=== PATIENT | female | born 1970 | race Caucasian/White ===

== ENCOUNTER 2020-09-05 17:23 | Emergency (ER) | payer MEDICARE, MEDICAID, SELFPAY ==
[2020-09-05 17:27] VITALS: BP 120/96; BP 160/112; PULSE 109; PULSE 116; RESP 16; RESP 18; TEMP 37.4; O2SAT 93; O2SAT 98; BMI 42.0
--- NOTE | 2020-09-05 17:57 | HMH.EDGENADL ---
ED Disposition Clinical Impression: Opiate withdrawal Disposition: Home, Self-Care Condition on Discharge: Good Additional Instructions: Take Gorham as prescribed. Further pain medication prescriptions per Dr. Adam. Additional instructions for CONTROLLED SUBSTANCES: You have been prescribed a medication that is a controlled substance. Controlled substances include pain medications known as opiates and sedative nerve medications known as benzodiazepines. Tramadol, fioricet, and gabapentin are also controlled substances. Some common opiates include: Codeine (such as Tylenol #3) Hydrocodone (Vicodin, Lortab, Lorcet, Gorham) Oxycodone (Percocet, Percodan, Oxycodone, Oxy IR) Some common benzodiazepines include: Diazepam (Valium) Lorazepam (Ativan) Alprazolam (Xanax) Clonazepam (Klonopin) Oxazepam (Serax) All of these controlled substances are highly addictive and frequently abused. Misuse can and frequently does lead to addiction as well as overdose and . Medication should be stored in a locked cabinet or other secure storage unit. Do not store the medication in a motor vehicle. Short term supplies, 3 days or less, are prescribed because of the highly addictive nature of the medication. Any of the controlled substance medication NOT taken should be disposed of properly and NOT SAVED. The recommended method of disposing of unused medications is: Place the medicines in a sealable plastic bag. If the medicine is a solid, crush it or add water to dissolve it. Add something undesirable (cat litter, coffee grounds, etc.) Dispose of sealed bag in household trash Do not flush or pour unused medicines down a sink or drain. Controlled substances should not be shared, given away or sold. Because of the addictive nature and frequent abuse, these medications are sometimes stolen. These medications should be kept in a safe place where they cannot be stolen. Do not keep them in your car or purse. Lost or stolen prescriptions for controlled substances WILL NOT BE REFILLED in this emergency department, regardless of whether a police report was filed. Prescriptions: Hydrocodone/Acetaminophen [Hydrocodon-Acetaminoph 7.5-325] 1 each PO Q4-6H PRN #15 tab PRN Reason: Moderate To Severe Pain Prescription Printed Referrals: Davey Adam [Primary Care Provider] - - Critical Care Critical Care Time: No Attestation: On 09/05/20, the high probability of a clinically significant, sudden or life threatening deterioration of the following system(s) required my full and direct attention, intervention and personal management. The time I documented below is in addition to time spent performing reported procedures but includes the following listed in this critical care notation. Medical Decision Making - Medical Records Medical records reviewed: Yes: I reviewed the patient's medical records. MR Massey: Reviewed discharge summary from [facility]. She was admitted for psychiatric evaluation on 08/15 and discharged today. She was on Gorham 7.5 mg but this was discontinued at discharge, no reason found. - Daquan Inquiry Pt receiving controlled substance: Yes Daquan was queried for this patient: Yes Risks and benefits of using a controlled substance: were discussed with pt by me Vital Signs: 09/05/20 17:27 09/05/20 19:00 Temperature 99.3 F Temperature Source Oral Pulse Rate [Radial] 109 H 108 H Respiratory Rate 18 17 Blood Pressure [Right Radial Artery] 120/96 H 156/99 H Blood Pressure Mean [Right Radial Artery] 104 118 Blood Pressure Source [Right Radial Artery] Automatic Cuff Blood Pressure Position [Right Radial Artery] Sitting Supine 02 Sat by Pulse Oximetry 98 95 Oxygen Delivery Method Room Air Room Air - Lab Data Lab results reviewed: Yes: I reviewed the patient's lab results. Lab Results 09/05/20 18:05: WBC 14.3 H, RBC 4.83, Hgb 12.1 L, Hct 39.1, MCV 80.9 L, MCH 25.0 L, MCHC 30.9 L, R
--- NOTE | 2020-09-05 17:57 | XR_ITS ---
PROCEDURE: XR CHEST PORTABLE CLINICAL HISTORY: soa COMPARISON: No exams were available for comparison FINDINGS: The cardiomediastinal silhouette and pulmonary vascularity are within normal limits. The lungs are clear without infiltrates, suspicious nodules, or pleural effusions. No acute bony abnormalities. IMPRESSION: No acute findings. Dictated by: Chucho Swift MD 09/06/2020 07:21 Chucho Swift MD in [place] 09/06/2020 07:21
--- NOTE | 2020-09-05 18:00 | ECG_ITS ---
APPROVED REPORT Exam: Resting ECG HR:112 bpm ECG Measurements Heart Rate 112 AXES AR 118 P 28 QRSd 76 QRS 16 QT 324 T 13 QTc 442 Conclusion Sinus tachycardia Otherwise normal ECG Electronically signed by : Carlos Pitts, 09/06/2020 07:10:31
[2020-09-05 18:21] LABS: Basophils # 0.1 K/mm3 (0-0.2); Basophils % 0.5 % (0.1-2.0); Eosinophils # 0.3 K/mm3 (0.0-0.4); Eosinophils % 1.9 % (0.1-12.0); Hematocrit 39.1 % (37.0-47.0); Hemoglobin 12.1 g/dL (12.2-16.2); Lymphocytes # 4.7 K/mm3 (0.7-4.5); Lymphocytes % 32.8 % (10-50); Mean Corpuscular HGB Conc 30.9 g/dL (31.8-35.4); Mean Corpuscular Volume 80.9 fl (81-99); Mean Platelet Volume 7.5 fl (7.4-10.4); Monocytes % 7.1 % (1.7-9.3); Neutrophils # 8.2 K/mm3 (1.8-7.8); Neutrophils % 57.7 % (37.0-80.0); Platelet Count 542 K/mm3 (142-424); Red Blood Count 4.83 M/mm3 (4.20-5.40); White Blood Count 14.3 K/mm3 (4.8-10.8)
[2020-09-05 18:28] LABS: Alanine Aminotransferase 46 U/L (12-78); Albumin/Globulin Ratio 1.3 (1.1-1.8); Alkaline Phosphatase 118 U/L (38-126); Anion Gap 17.4 mEq/L (5-15); Aspartate Amino Transferase 38 U/L (14-36); Bilirubin,Total 0.3 mg/dl (0.2-1.3); Blood Urea Nitrogen 17 mg/dl (7-17); Carbon Dioxide 23 mmol/L (22.0-30.0); Chloride 104 mmol/L (98-107); Creatinine Clearance Estimated 95 mL/min (50-200); Estimated Glomerular Filt Rate 105 ml/min (>60); GFR (African American) 127 ML/MIN (>60); Globulin 3.8 g/dL (1.3-3.2); Glucose 108 mg/dl (74-100); Lactic Acid 1.8 mmol/L (0.7-2.1); Potassium 4.4 mmoL/L (3.5-5.1); Sodium 140 mmol/L (136-145); Total Protein,Serum 8.8 g/dl (6.3-8.2)
[2020-09-05 18:40] LABS: Troponin I < 0.01 ng/ml (0.00-0.034)
[2020-09-05 18:46] LABS: Microscopic, Urine URINE MICROSCOPIC (MICROSCOPIC)
[2020-09-05 18:48] LABS: Appearance,Urine CLEAR (Clear); Bilirubin,Urine Negative (Negative); Blood, Urine 1+ (Negative); Color,Urine ORANGE (Yellow); Glucose,Urine (UA) Negative (Negative); Ketones,Urine Negative (Negative); Nitrate,Urine POSITIVE (Negative); PH,Urine 5.5 (5.0-8.5); Protein,Urine TRACE (Negative); Specific Gravity, Urine 1.025 (1.005-1.030)
[2020-09-05 18:49] LABS: Leukocyte Esterase,Urine Negative (Negative)
[2020-09-05 19:00] VITALS: BP 156/99; PULSE 108; RESP 17; O2SAT 95
[2020-09-05 19:30] VITALS: BP 147/94; PULSE 109; RESP 17; O2SAT 95
[2020-09-05 20:00] VITALS: BP 149/98; PULSE 102; RESP 17; O2SAT 96
[2020-09-05 20:18] VITALS: BP 148/88; PULSE 104; RESP 16; TEMP 37.1; O2SAT 97
--- NOTE | 2020-09-05 20:23 | PC.NURSE ---
ems at bedside at his time.
== END 2020-09-05 20:25 | disposition home or self-care (01) ==
PROVIDERS: Emergency Provider Emergency Medicine; PCP Family Medicine
DX: F11.23 Opioid dependence with withdrawal (principal); J44.9 Chronic obstructive pulmonary disease, unspecified; Z86.73 Personal history of transient ischemic attack (TIA), and cerebral infarction without residual deficits; E11.9 Type 2 diabetes mellitus without complications; I10 Essential (primary) hypertension; F33.1 Major depressive disorder, recurrent, moderate; E03.9 Hypothyroidism, unspecified; F20.9 Schizophrenia, unspecified; F68.A Factitious disorder imposed on another; D68.51 Activated protein C resistance; Z79.899 Other long term (current) drug therapy
CPT/HCPCS: 71045; 80053; 81001; 83605; 84484; 85025; 87040; 93005; 99284

== ENCOUNTER 2020-09-06 05:23 | Emergency (ER) | payer MEDICARE, MEDICAID, SELFPAY ==
--- NOTE | 2020-09-06 05:25 | PC.NURSE ---
spoke with Romelia Jones with [facility] and states she can be transfer back to [facility]
[2020-09-06 05:32] VITALS: BP 129/87; PULSE 102; RESP 18; TEMP 36.9; O2SAT 95; BMI 42.0
--- NOTE | 2020-09-06 05:44 | HMH.EDBACK ---
ED Disposition Clinical Impression: Lumbar radiculopathy Disposition: Home, Self-Care Condition on Discharge: Good Instructions: DI for Low Back Pain Additional Instructions: resume prev orders Referrals: Davey Adam [Primary Care Provider] - - Critical Care Critical Care Time: No Attestation: On 09/06/20, the high probability of a clinically significant, sudden or life threatening deterioration of the following system(s) required my full and direct attention, intervention and personal management. The time I documented below is in addition to time spent performing reported procedures but includes the following listed in this critical care notation. Medical Decision Making - Medical Records Medical records reviewed: Yes: I reviewed the patient's medical records. - Daquan Inquiry Pt receiving controlled substance: No Vital Signs: 09/06/20 05:32 Temperature 98.5 F Temperature Source Oral Pulse Rate [Right] 102 H Respiratory Rate 18 Blood Pressure [Right Arm] 129/87 Blood Pressure Mean [Right Arm] 101 Blood Pressure Source [Right Arm] Automatic Cuff Blood Pressure Position [Right Arm] Supine 02 Sat by Pulse Oximetry 95 Oxygen Delivery Method Room Air - Lab Data Lab results reviewed: Yes: I reviewed the patient's lab results. Medical Decision Narrative: has stable exam and has pain meds at [facility] and has guardian - will return to [facility] Back Pain HPI - General Chief Complaint: Back Pain/Injury Stated Complaint: pain Time Seen by Provider: 09/06/20 05:35 Mode of Arrival: EMS Source of Information: Patient, EMS, Medical Record Limitations: No Limitations Description of Symptoms (Recalled from ER Triage Doc. by RN): Pt was seen earlier today in this ED for same Chronic lower back pain, pt given RX and wanted it changed, feels the RX is appropriate. - History of Present Illness HPI Narrative: pt with hx of back pain and upset with [facility] about dosing - she has hx of recent admit from [facility] and was at ed earlier today Complaint: back pain Onset (ago): hour(s) Similar Symptoms Previously: Yes Location: lumbar spine Severity: similar to previous episodes Associated symptoms: denies other symptoms - Related Data Previous Rx's Medication Instructions Recorded Hydrocodone/Acetaminophen 1 each PO Q4-6H PRN #15 tab 09/05/20 [Hydrocodon-Acetaminoph 7.5-325] Allergies Allergy/AdvReac Type Severity Reaction Status Date / Time aspartame Allergy Verified 09/05/20 18:25 atorvastatin [From Lipitor] Allergy Verified 09/05/20 18:22 ceftazidime Allergy Verified 09/05/20 18:22 ciprofloxacin [From Cipro] Allergy Verified 09/05/20 18:23 citalopram [From Celexa] Allergy Verified 09/05/20 18:23 escitalopram [From Lexapro] Allergy Verified 09/05/20 18:24 gatifloxacin [From Tequin] Allergy Verified 09/05/20 18:24 Iodine and Iodide Containing Allergy Verified 09/05/20 18:25 Produc levofloxacin [From Levaquin] Allergy Verified 09/05/20 18:23 moxifloxacin Allergy Verified 09/05/20 18:24 NSAIDS (Non-Steroidal Allergy Verified 09/05/20 18:25 Anti-Inflamma sodium lauryl sulfate Allergy Verified 09/05/20 18:26 [facility] History - Hepatitis A Screen Drug use history?: No High risk sexual behaviors?: No History of sexually transmitted infection?: No Currently employed?: No Childcare worker?: No Do you have indoor plumbing?: Yes Do you have electricity?: Yes Attestation statement:: This patient has been screened for Hepatitis A risk factors. reviewed old records I have reviewed the patient's past medical history: Yes Medical History: Reports:: Chronic Obstructive Pulmonary Disease (COPD), Cerebrovascular Accident, Depression, Diabetes Mellitus Type 2, Hypertension Denies:: Diabetes Mellitus Type 1 Other Medical History: Reports: Anemia, Hypothyroidism, Other (Malcom's Disease) Comment: Factor 5 Leiden, Munchausen syndrome, Schizoaffective disorder Laterality Cases: B
--- NOTE | 2020-09-06 05:44 | PC.NURSE ---
Pt very disruptive swearing at staff and physician, she is not happy with her Physicians order and called 911 to come to the ER to have her Physician order changed. Pt's VS are stable and her chronic pain is getting treated, pt had Gardiner 7.5 45 minutes [employer]. Pt evaluated by Dr Samuels and he is satisfied with current treatment and pt will be transported back to [facility] via EMS.
[2020-09-06 05:50] VITALS: BP 126/84; PULSE 102; RESP 18; TEMP 36.9; O2SAT 96
== END 2020-09-06 05:56 | disposition home or self-care (01) ==
PROVIDERS: Emergency Provider Emergency Medicine; PCP Family Medicine
DX: M54.16 Radiculopathy, lumbar region (principal); J44.9 Chronic obstructive pulmonary disease, unspecified; E11.9 Type 2 diabetes mellitus without complications; E03.9 Hypothyroidism, unspecified; I10 Essential (primary) hypertension; Z88.2 Allergy status to sulfonamides; Z88.8 Allergy status to other drugs, medicaments and biological substances; Z79.899 Other long term (current) drug therapy
CPT/HCPCS: 99282

== ENCOUNTER 2020-10-27 02:35 | Emergency (ER) | payer MEDICARE, MEDICAID, SELFPAY ==
[2020-10-27 02:27] VITALS: BP 138/90; PULSE 106; RESP 18; TEMP 37.1; O2SAT 94; BMI 43.7
--- NOTE | 2020-10-27 02:38 | PC.NURSE ---
pt gave verbal consent to iv,blood draw, fluid administration, steroids,toradol,zofran.
[2020-10-27 02:39] VITALS: BMI 46.0
--- NOTE | 2020-10-27 03:00 | PC.NURSE ---
Pt has refused soul-medrol stating she wants her hydrocortisone. Pt refused toradol d/t adverse reaction. Pt is agreeable to IV fluids.
[2020-10-27 03:06] LABS: Chloride 102 mmol/L (98-107); Potassium 4.5 mmoL/L (3.5-5.1); Sodium 140 mmol/L (136-145)
[2020-10-27 03:08] LABS: Basophils # 0.1 K/mm3 (0-0.2); Basophils % 0.7 % (0.1-2.0); Eosinophils # 0.2 K/mm3 (0.0-0.4); Eosinophils % 1.7 % (0.1-12.0); Hematocrit 42.1 % (37.0-47.0); Hemoglobin 13.1 g/dL (12.2-16.2); Lymphocytes # 4.2 K/mm3 (0.7-4.5); Lymphocytes % 33.5 % (10-50); Mean Corpuscular HGB Conc 31.2 g/dL (31.8-35.4); Mean Corpuscular Hemoglobin 25.7 pg (27.0-31.2); Mean Corpuscular Volume 82.4 fl (81-99); Mean Platelet Volume 7.3 fl (7.4-10.4); Monocytes # 0.9 K/mm3 (0.1-1.0); Monocytes % 7.3 % (1.7-9.3); Neutrophils # 7.1 K/mm3 (1.8-7.8); Neutrophils % 56.7 % (37.0-80.0); Platelet Count 521 K/mm3 (142-424); Red Blood Count 5.11 M/mm3 (4.20-5.40); Red Cell Distribution Width 16.5 % (11.5-17.5); White Blood Count 12.5 K/mm3 (4.8-10.8)
[2020-10-27 03:09] LABS: Blood Urea Nitrogen 9 mg/dl (7-17); Creatinine Clearance Estimated 88 mL/min (50-200); Estimated Glomerular Filt Rate 88 ml/min (>60); GFR (African American) 106 ML/MIN (>60)
--- NOTE | 2020-10-27 03:09 | PC.NURSE ---
pt very confrontational and argumentative with care.refusing all offers of care.
[2020-10-27 03:10] LABS: Anion Gap 16.5 mEq/L (5-15); Calcium 10.5 mg/dl (8.4-10.2); Carbon Dioxide 26 mmol/L (22.0-30.0); Glucose 119 mg/dl (74-100)
--- NOTE | 2020-10-27 03:21 | HMH.EDHA ---
ED Disposition Clinical Impression: Migraine Qualifiers: Migraine type: unspecified Status migrainosus presence: without status migrainosus Intractability: not intractable Qualified Code(s): G43.909 - Migraine, unspecified, not intractable, without status migrainosus Disposition: Xfer SNF Condition on Discharge: Good Instructions: DI for Headache Additional Instructions: resume prev orders Referrals: PCP,No [Primary Care Provider] - - Critical Care Critical Care Time: No Attestation: On 10/27/20, the high probability of a clinically significant, sudden or life threatening deterioration of the following system(s) required my full and direct attention, intervention and personal management. The time I documented below is in addition to time spent performing reported procedures but includes the following listed in this critical care notation. Medical Decision Making - Medical Records Medical records reviewed: Yes: I reviewed the patient's medical records. - Daquan Inquiry Pt receiving controlled substance: No Vital Signs: 10/27/20 02:27 Temperature 98.7 F Temperature Source Oral Pulse Rate [Right Radial] 106 H Respiratory Rate 18 Blood Pressure [Right Arm] 138/90 Blood Pressure Mean [Right Arm] 106 Blood Pressure Source [Right Arm] Manual Cuff/ Auscultation Blood Pressure Position [Right Arm] Sitting 02 Sat by Pulse Oximetry 94 L Oxygen Delivery Method Room Air - Lab Data Lab results reviewed: Yes: I reviewed the patient's lab results. Lab Results 10/27/20 02:45: WBC 12.5 H, RBC 5.11, Hgb 13.1, Hct 42.1, MCV 82.4, MCH 25.7 L, MCHC 31.2 L, RDW 16.5, Plt Count 521 H, MPV 7.3 L, Neut % (Auto) 56.7, Lymph % (Auto) 33.5, Worth % (Auto) 7.3, Eos % (Auto) 1.7, Baso % (Auto) 0.7, Neut # (Auto) 7.1, Lymph # (Auto) 4.2, Worth # (Auto) 0.9, Eos # (Auto) 0.2, Baso # (Auto) 0.1 10/27/20 02:45: Sodium 140, Potassium 4.5, Chloride 102, Carbon Dioxide 26, Anion Gap 16.5 H, BUN 9, Creatinine 0.70, Estimated Creat Clear 88, Estimated GFR 88, Est GFR ( Amer) 106, Glucose 119 H, Calcium 10.5 H Result diagrams: 10/27/20 02:45 10/27/20 02:45 Orders (Tests/Meds): ED MEDICATIONS Generic Name Dose Route Start Last Admin Trade Name Freq PRN Reason Stop Dose Admin Sodium Chloride 1,000 mls @ 999 mls/hr 10/27/20 03:00 10/27/20 02:49 Sod Chlor 0.9% 1000ml Bag IV 10/27/20 04:00 999 mls/hr .Q1H1M [facility]AD Administration Discontinued Medications Generic Name Dose Route Start Last Admin Trade Name Freq PRN Reason Stop Dose Admin Ketorolac Tromethamine 30 mg 10/27/20 02:40 10/27/20 02:59 Ketorolac 30mg/Ml Vial IV 10/27/20 02:41 Not Given ONCE ONE Methylprednisolone Sodium Succinate 125 mg 10/27/20 02:40 10/27/20 02:58 Methylprednisolone Sod Succ 125mg Vial IV 10/27/20 02:41 Not Given ONCE ONE Ondansetron HCl 4 mg 10/27/20 02:40 10/27/20 02:58 Ondansetron 4mg/2ml Vial IV 10/27/20 02:41 Not Given ONCE ONE Medical Decision Narrative: pt declined meds at this time and appears stable to return [facility] Headache HPI - General Chief Complaint: Headache Stated Complaint: migraine unrelieved by narcotics Time Seen by Provider: 10/27/20 03:00 Mode of Arrival: EMS Source of Information: Patient, EMS, Medical Record Limitations: No Limitations Description of Symptoms (Recalled from ER Triage Doc. by RN): Pt arrives via EMS with c/o migraine. Pt has hx of migraines. Pt reports it started 10/26 around noon. Pt's PCP changed her medication for migraines but it was not received by [facility] today. - History of Present Illness HPI Narrative: reported migraine not relieved by her meds at [facility] - no hx of fever or rash and no trauma MD Complaint: migraine Onset (ago): hour(s) Onset description: gradual Location: diffuse Severity: moderate Quality: similar to previous headaches Associated symptoms: none Treatments prior to arrival: prescription analgesic, migraine medication
--- NOTE | 2020-10-27 03:25 | PC.NURSE ---
pt requested zofran once she was told she couldn't have narcotics. spoke with who stated we could give zofran 4mg iv prior to removing iv from right
--- NOTE | 2020-10-27 03:25 | PC.NURSE ---
Called [facility] and gave report to and notified pt would be discharged back to their facility.
[2020-10-27 03:44] VITALS: BP 158/92; PULSE 114; RESP 18; TEMP 37.1; O2SAT 96
[2020-10-27 03:55] VITALS: BP 158/90; PULSE 98; RESP 20; TEMP 36.9
--- NOTE | 2020-10-27 03:55 | PC.NURSE ---
Rajeev here to transport pt to [facility]
== END 2020-10-27 04:00 ==
PROVIDERS: Emergency Provider Emergency Medicine
DX: G43.909 Migraine, unspecified, not intractable, without status migrainosus (principal); J44.9 Chronic obstructive pulmonary disease, unspecified; E11.9 Type 2 diabetes mellitus without complications; I10 Essential (primary) hypertension; E03.9 Hypothyroidism, unspecified; F20.9 Schizophrenia, unspecified; D68.51 Activated protein C resistance; F68.10 Factitious disorder imposed on self, unspecified
CPT/HCPCS: 80048; 85025; 96365; 96375; 99283